=== PATIENT | female | born 1980 | race Caucasian/White ===

== ENCOUNTER 2018-08-08 14:06 | Emergency (ER) | payer OTHER ==
[2018-08-08] MEDS ORDERED: Ketorolac Tromethamine 30 MG/ML VIAL ONE (15:09)
== END 2018-08-08 15:25 | disposition home or self-care (01) ==
LOC: MADERS 14:06
DX: G89.29 Other chronic pain (principal); M54.2 Cervicalgia; F17.210 Nicotine dependence, cigarettes, uncomplicated; Z79.899 Other long term (current) drug therapy; F42.9 Obsessive-compulsive disorder, unspecified
CPT/HCPCS: 96372; J1885

== ENCOUNTER 2022-09-27 05:55 | Emergency (ER) | payer OTHER ==
[2022-09-27] MEDS ORDERED: Ketorolac Tromethamine 60 MG/2 ML VIAL ONE (06:40)
[2022-09-27] MEDS ORDERED: Ipratropium/Albuterol 3 ML NEB ONE (06:46)
[2022-09-27] MEDS ORDERED: Ondansetron ODT 4 MG TAB ONE (06:53)
== END 2022-09-27 08:05 | disposition home or self-care (01) ==
LOC: MADERS 05:55
DX: J10.1 Influenza due to other identified influenza virus with other respiratory manifestations (principal); J98.01 Acute bronchospasm; Z20.822 Contact with and (suspected) exposure to COVID-19
CPT/HCPCS: 71045; 87081; 87430; 87804; 96372; J1885; J7620; Q0162; U0003; U0005

== ENCOUNTER 2023-01-05 14:34 | Outpatient (CLI) | payer OTHER | END 2023-01-05 14:35 | disposition home or self-care (01) | LOC: MADRAD 14:34 | PROVIDERS: ATTEND Internal Medicine | DX: Z12.2 Encounter for screening for malignant neoplasm of respiratory organs (principal); F17.210 Nicotine dependence, cigarettes, uncomplicated | CPT/HCPCS: 71046 ==

== ENCOUNTER 2024-05-16 09:59 | Outpatient (CLI) | payer OTHER | END 2024-05-16 10:00 | disposition home or self-care (01) | LOC: MADRAD 09:59 | PROVIDERS: ATTEND Family Medicine | DX: M25.512 Pain in left shoulder (principal) ==